=== PATIENT | male | born 1950 | race African-American/Black ===

== ENCOUNTER → 2019-09-11 | Outpatient (CLI) | payer OTHER ==
[~2019-09-11] MED LIST: ADVIL COLD & S1 EAC1 PO; AMOXICILLIN 50500 M1 PO; ATORVASTATIN CA10 MG PO; CENTRUM SILVER1 EAC2; COQ10 SG 100 S1 EACH PO; LISINOPRIL20 MG PO; OMEGA 3-6-9 CO1 EACH PO
== END ==
LOC: ULTRA 14:03 → HYPER 14:03
DX: I83.013 Varicose veins of right lower extremity with ulcer of ankle (principal); L97.312 Non-pressure chronic ulcer of right ankle with fat layer exposed; I83.028 Varicose veins of left lower extremity with ulcer other part of lower leg; L97.812 Non-pressure chronic ulcer of other part of right lower leg with fat layer exposed; L97.211 Non-pressure chronic ulcer of right calf limited to breakdown of skin; I83.012 Varicose veins of right lower extremity with ulcer of calf; R73.03 Prediabetes; L30.9 Dermatitis, unspecified; E78.5 Hyperlipidemia, unspecified; I10 Essential (primary) hypertension; G47.33 Obstructive sleep apnea (adult) (pediatric); Z68.34 Body mass index [BMI] 34.0-34.9, adult; Z99.89 Dependence on other enabling machines and devices

== ENCOUNTER → 2019-09-18 | Outpatient (CLI) | payer OTHER | LOC: HYPER 09:28 | DX: I83.013 Varicose veins of right lower extremity with ulcer of ankle (principal); L97.312 Non-pressure chronic ulcer of right ankle with fat layer exposed; I83.018 Varicose veins of right lower extremity with ulcer other part of lower leg; L97.812 Non-pressure chronic ulcer of other part of right lower leg with fat layer exposed; L30.9 Dermatitis, unspecified; L84 Corns and callosities; R60.0 Localized edema; E78.5 Hyperlipidemia, unspecified; I10 Essential (primary) hypertension; R73.03 Prediabetes; G47.33 Obstructive sleep apnea (adult) (pediatric); Z99.89 Dependence on other enabling machines and devices; Z23 Encounter for immunization ==

== ENCOUNTER → 2019-09-25 | Outpatient (CLI) | payer OTHER | LOC: HYPER 13:19 | DX: I83.013 Varicose veins of right lower extremity with ulcer of ankle (principal); L97.312 Non-pressure chronic ulcer of right ankle with fat layer exposed; I83.012 Varicose veins of right lower extremity with ulcer of calf; L97.812 Non-pressure chronic ulcer of other part of right lower leg with fat layer exposed; L84 Corns and callosities; L30.9 Dermatitis, unspecified; E78.5 Hyperlipidemia, unspecified; R73.03 Prediabetes; R60.0 Localized edema; I10 Essential (primary) hypertension; G47.33 Obstructive sleep apnea (adult) (pediatric); Z99.89 Dependence on other enabling machines and devices; Z23 Encounter for immunization ==

== ENCOUNTER → 2019-10-02 | Outpatient (CLI) | payer OTHER | LOC: HYPER 13:19 | DX: I83.012 Varicose veins of right lower extremity with ulcer of calf (principal); L97.212 Non-pressure chronic ulcer of right calf with fat layer exposed; I83.013 Varicose veins of right lower extremity with ulcer of ankle; L97.312 Non-pressure chronic ulcer of right ankle with fat layer exposed; L84 Corns and callosities; L30.9 Dermatitis, unspecified; R60.0 Localized edema; E78.5 Hyperlipidemia, unspecified; R73.03 Prediabetes; G47.33 Obstructive sleep apnea (adult) (pediatric); G47.30 Sleep apnea, unspecified; I10 Essential (primary) hypertension; Z99.89 Dependence on other enabling machines and devices; Z23 Encounter for immunization ==

== ENCOUNTER → 2019-10-09 | Outpatient (CLI) | payer OTHER | LOC: HYPER 13:23 | DX: I83.018 Varicose veins of right lower extremity with ulcer other part of lower leg (principal); L97.812 Non-pressure chronic ulcer of other part of right lower leg with fat layer exposed; I83.012 Varicose veins of right lower extremity with ulcer of calf; L97.211 Non-pressure chronic ulcer of right calf limited to breakdown of skin; I83.013 Varicose veins of right lower extremity with ulcer of ankle; L97.312 Non-pressure chronic ulcer of right ankle with fat layer exposed; L84 Corns and callosities; L30.9 Dermatitis, unspecified; R60.0 Localized edema; E78.5 Hyperlipidemia, unspecified; R73.03 Prediabetes; G47.33 Obstructive sleep apnea (adult) (pediatric); I10 Essential (primary) hypertension; Z99.89 Dependence on other enabling machines and devices; Z23 Encounter for immunization ==

== ENCOUNTER → 2019-10-16 | Outpatient (CLI) | payer OTHER | LOC: HYPER 12:54 | DX: I83.013 Varicose veins of right lower extremity with ulcer of ankle (principal); L97.312 Non-pressure chronic ulcer of right ankle with fat layer exposed; I83.012 Varicose veins of right lower extremity with ulcer of calf; L97.812 Non-pressure chronic ulcer of other part of right lower leg with fat layer exposed; L84 Corns and callosities; L30.9 Dermatitis, unspecified; E78.5 Hyperlipidemia, unspecified; G47.33 Obstructive sleep apnea (adult) (pediatric); I10 Essential (primary) hypertension; R60.0 Localized edema; R73.03 Prediabetes; Z99.89 Dependence on other enabling machines and devices; Z23 Encounter for immunization ==

== ENCOUNTER → 2019-10-23 | Outpatient (CLI) | payer OTHER | LOC: HYPER 09:54 | DX: I83.012 Varicose veins of right lower extremity with ulcer of calf (principal); L97.212 Non-pressure chronic ulcer of right calf with fat layer exposed; I83.013 Varicose veins of right lower extremity with ulcer of ankle; L97.312 Non-pressure chronic ulcer of right ankle with fat layer exposed; L84 Corns and callosities; L30.9 Dermatitis, unspecified; R60.0 Localized edema; E78.5 Hyperlipidemia, unspecified; G47.33 Obstructive sleep apnea (adult) (pediatric); R73.03 Prediabetes; I10 Essential (primary) hypertension; Z99.89 Dependence on other enabling machines and devices; Z23 Encounter for immunization ==

== ENCOUNTER → 2019-10-30 | Outpatient (CLI) | payer OTHER | LOC: HYPER 10:58 | DX: I83.012 Varicose veins of right lower extremity with ulcer of calf (principal); L97.212 Non-pressure chronic ulcer of right calf with fat layer exposed; I83.013 Varicose veins of right lower extremity with ulcer of ankle; L97.312 Non-pressure chronic ulcer of right ankle with fat layer exposed; L84 Corns and callosities; L30.9 Dermatitis, unspecified; R60.0 Localized edema; R73.03 Prediabetes; I10 Essential (primary) hypertension; E78.5 Hyperlipidemia, unspecified; G47.33 Obstructive sleep apnea (adult) (pediatric); Z68.34 Body mass index [BMI] 34.0-34.9, adult; Z99.89 Dependence on other enabling machines and devices; Z23 Encounter for immunization ==

== ENCOUNTER → 2019-11-06 | Outpatient (CLI) | payer OTHER | LOC: HYPER 11:43 | DX: I83.012 Varicose veins of right lower extremity with ulcer of calf (principal); L97.212 Non-pressure chronic ulcer of right calf with fat layer exposed; I83.013 Varicose veins of right lower extremity with ulcer of ankle; L97.312 Non-pressure chronic ulcer of right ankle with fat layer exposed; L84 Corns and callosities; L30.9 Dermatitis, unspecified; R60.0 Localized edema; E78.5 Hyperlipidemia, unspecified; I10 Essential (primary) hypertension; R73.03 Prediabetes; G47.33 Obstructive sleep apnea (adult) (pediatric); Z99.89 Dependence on other enabling machines and devices; Z23 Encounter for immunization ==

== ENCOUNTER → 2019-11-20 | Outpatient (CLI) | payer OTHER | LOC: HYPER 13:04 | DX: I83.012 Varicose veins of right lower extremity with ulcer of calf (principal); L97.812 Non-pressure chronic ulcer of other part of right lower leg with fat layer exposed; I83.013 Varicose veins of right lower extremity with ulcer of ankle; L97.312 Non-pressure chronic ulcer of right ankle with fat layer exposed; L84 Corns and callosities; L30.9 Dermatitis, unspecified; R60.0 Localized edema; R73.03 Prediabetes; E78.5 Hyperlipidemia, unspecified; G47.33 Obstructive sleep apnea (adult) (pediatric); I10 Essential (primary) hypertension; Z99.89 Dependence on other enabling machines and devices; Z23 Encounter for immunization ==

== ENCOUNTER → 2019-12-04 | Outpatient (CLI) | payer OTHER | LOC: ULTRA 12:01 | PROVIDERS: ATTEND Internal Medicine | DX: I82.411 Acute embolism and thrombosis of right femoral vein (principal) ==

== ENCOUNTER → 2019-12-04 | Outpatient (CLI) | payer OTHER | LOC: HYPER 13:03 | PROVIDERS: ATTEND Emergency Medicine | DX: I83.012 Varicose veins of right lower extremity with ulcer of calf (principal); L97.211 Non-pressure chronic ulcer of right calf limited to breakdown of skin; I83.013 Varicose veins of right lower extremity with ulcer of ankle; L97.312 Non-pressure chronic ulcer of right ankle with fat layer exposed; I83.018 Varicose veins of right lower extremity with ulcer other part of lower leg; L97.812 Non-pressure chronic ulcer of other part of right lower leg with fat layer exposed; R60.0 Localized edema; I10 Essential (primary) hypertension; E78.5 Hyperlipidemia, unspecified; L84 Corns and callosities; L30.9 Dermatitis, unspecified; R73.03 Prediabetes; G47.33 Obstructive sleep apnea (adult) (pediatric); Z68.34 Body mass index [BMI] 34.0-34.9, adult; Z99.89 Dependence on other enabling machines and devices; Z79.01 Long term (current) use of anticoagulants ==

== ENCOUNTER → 2020-03-10 | Outpatient (CLI) | payer OTHER | LOC: ULTRA 07:41 | PROVIDERS: ATTEND Internal Medicine | DX: I82.890 Acute embolism and thrombosis of other specified veins (principal) ==